=== PATIENT | male | born 1970 | race Caucasian/White ===

== ENCOUNTER 2016-12-07 06:00 | Inpatient (IN) | payer BC, OTHER ==
--- NOTE | 2016-12-06 16:35 | GHP ---
[f rep st] PREOP HISTORY AND PHYSICAL PROBLEM: Severe right hip degenerative arthritis. HISTORY OF PRESENT ILLNESS: Brandt is a 46-year-old male, who will be admitted for a right total hip arthroplasty with Dr. Riggs at the [facility] on Wednesday, December 07, 2016. The patient underwent a left hip resurfacing arthroplasty 6 years ago with a very good result. His right hip became very painful over the summer. For the past 6 months, he has had progressive, debilitating pain of the right hip. He has pain on a regular basis , both during the day and at night. Walking is very painful. His activities have become severely limited. 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 He uses oral anti-inflammatory with minimal improvement. He will also occasionally use [place] to help him sleep. He has difficulty putting on shoes and socks on the right side. He will also intermittently use a cane as needed. Because of his progressive pain and advanced arthritis, he has elected to proceed with a right hip resurfacing arthroplasty. PAST MEDICAL HISTORY: Pertinent for depression, hypoglycemia, acid reflux, and sleep apnea with use of a CPAP. No history of MRSA, [place], CAD, PE, or DVT. CURRENT MEDICATIONS: Diclofenac, omeprazole 40 mg, risperidone 1 mg tablets, venlafaxine 75 mg. MEDICATION ALLERGIES: Ceftin and Zoloft. No metal allergies. SOCIAL HISTORY: The patient is engaged. He lives with his fiancee. 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 He is a previous smoker at 1 pack per week. Chewing tobacco 2-4 days per week. Occasional alcohol and caffeine intake. FAMILY HISTORY: Pertinent for arthritis. PAST SURGICAL HISTORY: Appendectomy and cholecystectomy in 2014, and left hip THR in 2009. PHYSICAL EXAMINATION: GENERAL: He is an otherwise healthy-appearing 46-year- old male. VITAL SIGNS: Height 5 feet 11 inches tall, weight 260 pounds. BMI 36.3. HEENT. Head is normocephalic, atraumatic. Eyes are PERRLA. Conjunctivae and sclerae are clear. Mouth has good oral hygiene. Without any loose teeth. LUNGS: Clear. HEART: Regular rate and rhythm without murmurs, gallops, or rubs. EXTREMITIES: Pertinent findings are limited to the patient' s right hip. He has full hip extension, 80 degrees of flexion, basically 0 degrees of internal rotation and 20 degrees of abduction. IMPRESSION ON ADMISSION: 1. Severe right hip degenerative arthritis. 2. Six years status post left total hip replacement with good results. 3. Obesity. 4. Attention deficit hyperactivity disorder. 5. History of sleep apnea with CPAP use. 6. Gastroesophageal reflux disease. 7. Hypoglycemia. PLAN: The plan will be for the patient to undergo a right hip resurfacing arthroplasty with Dr. Riggs the [facility] on Wednesday, December 07, 2016. The surgery has been described to the patient including the risks, benefits, and expectations. He understands the risk of [id number] bearing surfaces. He also understands the risk of sciatic nerve injury, infection, hip dislocation, or need for future revision surgery. All his questions have been answered. He consents to surgery here in the office today. Copy requested to: RALPH Alberto Dr. /[id number]/MODL MTDD
[~2016-12-07 06:00] MED LIST: ACETAMINOPHEN 325 MG TAB PO ONE; CEFAZOLIN 2 GM/DEXTR 100 ML IV ONE; CHLORHEXIDINE GLUC HIBICLENS 118 ML BTL TP ONE; DEXAMETHASONE 4 MG/ML VIAL IVP ONE; FAMOTIDINE 20 MG TAB PO ONE; NS IV ONE; POVIDONE-IODINE 20 ML in SODIUM CL IRRIG SOLUTION 500 ML IRR ONE; ROPI/epiNEPH/KETOROLAC JOINT COCKTAIL IU ONE; TRANEXAMIC ACID IV ONE
[2016-12-07] MEDS ORDERED: LIDOCAINE 1% 5 ML SDV ONE (06:16)
[2016-12-07] MEDS ORDERED: SKIN ADHESIVE (DERMABOND) 1 EACH TP ONE (06:52)
[2016-12-07] MEDS ORDERED: ceFAZolin 1 GM/5 ML SYR ONE (06:53)
[2016-12-07] MEDS ORDERED: MIDAZOLAM 2 MG/2 ML VIAL ONE (07:12)
[2016-12-07] MEDS ORDERED: BUPIVACAINE 0.5% 30 ML SDV ONE (07:15)
[2016-12-07] MEDS ORDERED: PROPOFOL/EMULSION 500 MG/50 ML BOTTLE IV ONE ×3 (07:16→08:42)
[2016-12-07] MEDS ORDERED: fentaNYL 100 MCG/2 ML INJ ONE (07:16)
[2016-12-07] MEDS ORDERED: ONDANSETRON 4 MG/2 ML VIAL ONE (07:17)
[2016-12-07] MEDS ORDERED: LIDOCAINE 2% 100 MG/5 ML SYR IVP ONE (07:17)
[2016-12-07] MEDS ORDERED: DEXAMETHASONE 4 MG/ML VIAL ONE (07:17)
[2016-12-07] MEDS ORDERED: PHENYLEPHRINE HCL 100 MCG/ML SYR ONE ×2 (08:14→09:07)
--- NOTE | 2016-12-07 09:10 | POSTOPPROG ---
Post Op Note Date of Operation: 12/07/16 Surgeon: Dennis Riggs Wave Solder Offbearer: Robbin Anesthesiologist: Rohit Anesthesia: IV Sedation, Spinal Post-op Diagnosis: right hip arthritis Procedure: right BHR Inf/Abcess present in the surg proc area at time of surgery?: No EBL: [id number]
[2016-12-07] MEDS ORDERED: MAGNESIUM HYDROXIDE 30 ML UDCUP PO PRN (09:20)
[2016-12-07] MEDS ORDERED: LACTULOSE 20 GM/30 ML UDCUP PO PRN (09:20)
[2016-12-07] MEDS ORDERED: PROMETHAZINE HCL 25 MG SUPPR PR PRN (09:20)
[2016-12-07] MEDS ORDERED: PROMETHAZINE HCL 25 MG/ML INJ IVP PRN (09:20)
[2016-12-07] MEDS ORDERED: BISACODYL 10 MG SUPP PR PRN (09:20)
[2016-12-07] MEDS ORDERED: diphenhydrAMINE 25 MG CAP PO PRN (09:20)
[2016-12-07] MEDS ORDERED: DIPHENOXYLATE/ATROPINE LOMOTIL 1 TAB PO PRN (09:20)
[2016-12-07] MEDS ORDERED: ONDANSETRON 4 MG/2 ML VIAL IVP PRN (09:20)
[2016-12-07] MEDS ORDERED: POLYETHYLENE GLYCOL 3350 17 GM PKT PO PRN (09:20)
[2016-12-07] MEDS ORDERED: TEMAZEPAM 15 MG CAP PO PRN (09:20)
[2016-12-07] MEDS ORDERED: PHARMACY PAIN CONSULT 1 EA MISC PRN (09:20)
[2016-12-07] MEDS ORDERED: traMADol 50 MG TAB PO PRN (09:20)
[2016-12-07] MEDS ORDERED: NS 500 ML IV PRN (09:20)
[2016-12-07] MEDS ORDERED: ONDANSETRON DISINTEGRATING 4 MG TAB PO PRN (09:20)
[2016-12-07] MEDS ORDERED: LR 1,000 ML IV SCH (09:30)
--- NOTE | 2016-12-07 09:59 | DX ---
AP Pelvis History: Postop hip resurfacing procedure. Comparison: January 12, 2010 Findings: A new right hip resurfacing implant is present. There is a stable previously placed left re surfacing implant. Bilateral alignment looks anatomic. Bilateral vasectomy clips are again present. Impression: Excellent postoperative alignment.
--- NOTE | 2016-12-07 10:34 | GOP ---
[f rep st] OPERATIVE REPORT DATE OF OPERATION: 12/07/2016 SURGEON: Dennis Riggs MD SATELLITE TELEVISION INSTALLER: 1. Spencer Hernandez CFA. 2. Mark Neves, PAC. ANESTHESIA: Combination of Marcaine, spinal, and IV sedation. ANESTHESIOLOGIST: Braulio Bee MD. PREOPERATIVE DIAGNOSIS: Right hip severe degenerative arthritis. POSTOPERATIVE DIAGNOSIS: Right hip severe degenerative arthritis. PROCEDURE PERFORMED: Right hip [place] hip resurfacing arthroplasty. FINDINGS: DESCRIPTION OF PROCEDURE: The patient was given 2 g of preoperative IV Ancef within 60 minutes of gregory rgery. He also received IV tranexamic acid at a dose of 20 mg/kg. He was placed on the operating ro om table and given spinal anesthesia with Marcaine by Dr. Bee. He was then placed supine and given IV sedation. A Bethea catheter was not used. He wore a compressive stocking and SCD on the nonopera tive leg. He was rolled to the left lateral decubitus position. An axillary roll was used and all p ressure points were carefully padded. He was a large man; height 5 feet 11 inches, weight 260 pounds , BMI 36.3, which made positioning somewhat difficult. He was rolled to the left lateral decubitus p osition. An axillary roll was used, and all pressure points were carefully padded. The position was secured with the pegboard table attachment. I was careful to lock his pelvis in a vertical position . His perineum was isolated with plastic adhesive drapes. The right hip and right lower extremity w ere prepped with ChloraPrep. They were draped free using sterile sheets, stockinette, and Ioban plas tic drape. The [employer] time-out was performed to verify the correct patient identity and the c orrect surgical side. The [place] time-out was also performed. I made a 7-inch straight oblique posterolateral hip skin incision. The subcutaneous tissues were sha rply divided, and hemostasis was obtained using electrocautery. His fascia pablo was identified and s plit along the axis of its fibers. I curved posteriorly and proximally, and split the fascia of the gluteus nasrin and bluntly split the muscle fibers in line with their orientation. His sciatic nerv e was identified and protected throughout the procedure. The Charnley self-retaining retractor was i nserted. The external rotators and the posterior hip capsule were divided as separate layers at the base of the femoral neck, tagged, and reflected posteriorly. The gluteus nasrin tendon was divided and tagged in order to improve exposure and release tension on the sciatic nerve. His hip was disloc ated posteriorly. I used a sizing gauge to check the diameter of the neck and concluded that 48 mm w as the proper head size. I performed a circumferential capsulotomy. I was able to retract the femor al head anteriorly and superiorly and hold it out of place with appropriate retractors. The remnant of the badly damaged labrum was completely excised. His acetabulum was reamed sequentially up to 54 mm. I selected the [place] monoblock porous-coated acetabular component with an outside diameter of 54 mm. This was firmly impacted and was a very tight fit. I was careful to determine proper incl ination and anteversion. I used the transverse acetabular ligament and other acetabular bony landmar ks to help me properly orient the cup. He had a large anterior and anterior-inferior osteophytes, wh ich I removed with an osteotome and rongeur. I was careful to leave a good lip of bone and capsule e xtending beyond the anterior-inferior lip of the metal cup. I then returned to preparation of the femoral head. Using appropriate jigs and guides, I inserted a guide pin into the femoral head and neck. I was careful to position it in such a way that there woul d be no notching of the neck. He had a large anterior head/neck osteophyte. There was no anterior h ead/neck offset. I reamed over the guide pin and inserted the reaming guide. I then used the cylind rical reamer down to the head/neck junction. This was followed by the flat reamer and the chamfer re amer. The head was sized for 50 mm. I tried to position it in a way that was re-establishing the an terior head/neck offset. There was no impingement or damage to the neck. I trimmed some soft anteri or neck osteophytes with a rongeur. I drilled a small hole in the lesser trochanter, and inserted a suction cannula to create negative pressure in the medullary canal. Small holes were drilled on the flattened chamfered surfaces of the prepared head for cement anchors. The head was thoroughly cleane d with the pulsating lavage and carefully dried. I used the CarboJet device to blow dry the cancello us surfaces. A single batch of Simplex cement with tobramycin was mixed. At about 50 seconds, I epifanio red the liquid cement into the head component, inserted it into the femoral head and impacted it into place. Excess cement was removed before it hardened. The acetabulum was irrigated, cleaned, and in spected, and the hip was reduced. Stability and range of motion were checked. I placed my finger al michelle the anterior aspect of the acetabular component, and flexed the hip to 110 degrees. There was no anterior impingement. The suction cannula in the lesser trochanter was removed. The wound was thor oughly irrigated with a dilute Betadine solution. 40 cc of the joint anesthetic cocktail were inject ed into the capsule, the deep musculature, and the subcutaneous tissues along the skin edges. His sciatic nerve was reinspected and looked unharmed. The external rotators and the posterior hip c apsule were repaired in separate layers with #2 FiberWire sutures through drill holes in the greater trochanter. This provided a strong posterior capsular and external rotator repair. The gluteus maxi mus tendon was repaired with 2 interrupted [id number] #2 FiberWire sutures. The fascia pablo was repaired first with 2 interrupted [id number] #2 FiberWire sutures, followed by a running #2 bar bed Ethicon Stratafix PDO suture. The subcutaneous tissues were closed with a running 0 barbed Ethic on Stratafix Monoderm suture. The skin was closed with a running 3-0 barbed Ethicon Stratafix Monode rm subcuticular suture. The skin edges were reapproximated and sealed with Dermabond glue. The woun d was covered with a strip of Telfa, and everything was held in place with a piece of clear plastic T egaderm. The estimated blood loss was approximately 400 mL. I used a [employer] [place] hip resurfacing system. The acetabular component was 54 mm in d iameter and press-fit. The femoral head was 50 mm and cemented. He was awakened from anesthesia and rolled to the supine position on his [facility]. A long leg compressive stocking and SCD were applied to the operative leg. He wore a stocking and SCD on the opposite leg during the procedure. An abduction pillow was placed between his knees. The patient was taken to PACU in satisfactory cond ition. There were no recognized intraoperative complications. The sponge and needle counts were correct on 2 occasions. Spencer Hernandez and Sebastien Neves acted as surgical assistants. Their assistance was a medical necess ity. Copy requested to: David Marcum MD [place] /[id number]/MODL
[2016-12-07] MEDS: ACETAMINOPHEN 325 MG TAB PO SCH ×2 (11:16→17:32)
[2016-12-07] MEDS: TRANEXAMIC ACID 650 MG TAB PO SCH ×3 (11:16→21:27)
[2016-12-07] MEDS ORDERED: ceFAZolin 2 GM/DEXTROSE 100 ML IV SCH (14:00)
[2016-12-07] MEDS: oxyCODONE IR 5 MG TAB PO PRN ×4 (14:12→21:37)
[2016-12-07] MEDS: KETOROLAC 30 MG/1 ML SDV IVP PRN ×2 (14:13→21:38)
[2016-12-07] MEDS ORDERED: NON-FORMULARY NEW DRUG (Omeprazole [Prilosec 20 Mg] 40 MG) PO SCH (21:00)
[2016-12-07] MEDS ORDERED: risperiDONE 1 MG TAB PO SCH (21:00)
[2016-12-07] MEDS: VENLAFAXINE XR 75 MG CAP PO SCH (21:27)
[2016-12-07] MEDS: PANTOPRAZOLE SODIUM 40 MG TAB PO SCH (21:27)
[2016-12-07] MEDS: SENNOSIDES/DOCUSATE SODIUM TAB PO SCH (21:27)
[2016-12-07] MEDS: FAMOTIDINE 20 MG TAB PO SCH (21:28)
[2016-12-07] MEDS: ASPIRIN 325 MG TAB PO SCH (21:32)
[2016-12-07] MEDS: CYCLOBENZAPRINE 10 MG TAB PO PRN (21:38)
[2016-12-07] MEDS ORDERED: ceFAZolin 2 GM in D5W 100 ML IV ONE (22:00)
[2016-12-08] MEDS: ACETAMINOPHEN 325 MG TAB PO SCH ×3 (02:30→13:37)
[2016-12-08 04:20] VITALS: RESP 16
[2016-12-08 05:11] LABS: HEMATOCRIT 33.9 % (40.0-51.0); HEMOGLOBIN 11.6 g/dL (13.7-17.5)
[2016-12-08] MEDS: CYCLOBENZAPRINE 10 MG TAB PO PRN ×2 (05:18→13:38)
[2016-12-08] MEDS: oxyCODONE IR 5 MG TAB PO PRN ×3 (05:18→13:38)
[2016-12-08 08:47] VITALS: BP 118/78; PULSE 75; TEMP 98.5; O2SAT 98
[2016-12-08] MEDS: VENLAFAXINE XR 75 MG CAP PO SCH (08:47)
[2016-12-08] MEDS: SENNOSIDES/DOCUSATE SODIUM TAB PO SCH (08:48)
[2016-12-08] MEDS: ASPIRIN 325 MG TAB PO SCH (08:48)
[2016-12-08] MEDS: PANTOPRAZOLE SODIUM 40 MG TAB PO SCH (08:49)
[2016-12-08] MEDS: TRANEXAMIC ACID 650 MG TAB PO SCH (08:49)
[2016-12-08] MEDS: KETOROLAC 30 MG/1 ML SDV IVP PRN (08:50)
[2016-12-08] MEDS: FAMOTIDINE 20 MG TAB PO SCH (08:50)
[2016-12-08] MEDS ORDERED: CETIRIZINE 10 MG TAB PO SCH (09:00)
[2016-12-08] MEDS ORDERED: MULTIVITAMINS 1 EACH TAB PO SCH (09:00)
[2016-12-08] MEDS ORDERED: FERROUS SULFATE 140 MG TAB.ER PO SCH (09:00)
[2016-12-08] MEDS ORDERED: NON-FORMULARY NEW DRUG (Fexofenadine Hcl [Allegra Allergy] 60 MG) PO SCH (09:00)
[2016-12-08] MEDS ORDERED: risperiDONE 0.5 MG TAB PO SCH (09:00)
--- NOTE | 2016-12-08 09:29 | SOAPPROG ---
SOAP Progress Note Assessment/Plan: Assessment: Afebrile. Moderate pain. Dsg is dry. Mild swelling. Sciatic nerve intact. H/H is good. Films look good. Plan: Up with PT. DC later today. 12/08/16 09:28 12/08/16 09:28 Objective: Vital Signs Temp Pulse Resp BP Pulse Ox 36.9 C 75 16 118/78 98 12/08/16 08:44 12/08/16 08:44 12/08/16 08:44 12/08/16 08:44 12/08/16 08:44 Laboratory Results 12/08/16 04:20 12/07/16 12/08/16 12/09/16 05:59 05:59 05:59 Intake Total 4250 Output Total 6645 Balance 1475 ICD10 Worksheet Patient Problems: Problems Problem Status Diagnosed Osteoarthritis of right hip Acute
--- NOTE | 2016-12-08 11:52 | GDS ---
[f rep st] DISCHARGE SUMMARY ADMISSION DIAGNOSIS: Right hip arthritis. DISCHARGE DIAGNOSIS: Right hip arthritis. PROCEDURE PERFORMED: 12/07/2016, right hip [place] hip resurfacing arthroplasty. POSTOPERAETIVE COMPLICATIONS: None. CONDITION ON DISCHARGE: Improved. DESCRIPTION OF HOSPITAL COURSE: The patient was admitted to the hospital on the morning of surgery. His admission CBC was normal. The same day, under a combination of Marcaine spinal and IV sedation, he underwent a right hip [place] hip resurfacing arthroplasty. Postoperatively, he was treated w ith multimodal DVT prophylaxis including aspirin. There were no postoperative problems with urinatio n. On the 1st postoperative day, his hemoglobin and hematocrit were 11.6 and 33.9. He did not requi re any transfused blood. He was seen by Physical Therapy and made good progress with ambulation and stairs. By the time of discharge, he was afebrile and was independent walking with a walker. DISPOSITION: The [facility]. I will see him in the office tomorrow. After that, he will return to his home in [place], [place]. He may progress to full weightbe aring on the right as tolerated. Use an abduction pillow in bed for 3 weeks. Continue aspirin 325 m g p.o. daily for 21 days. Continue JAMES stockings for 1 week. He has prescriptions for oxycodone and tramadol for pain control. If there are any problems, he will call me at the office. He will go to outpatient physical therapy in [place], [place]. /[id number]/MODL
== END 2016-12-08 13:41 | disposition home or self-care (01) | DRG 470 ==
LOC: F3N 06:00
PROVIDERS: ADMIT Orthopaedic Surgery; ATTEND Orthopaedic Surgery
PROC: 0SR90J9 Replacement of Right Hip Joint with Synthetic Substitute, Cemented, Open Approach (ICD-10-PCS; principal; 2016-12-07 07:15)
DX: M16.11 Unilateral primary osteoarthritis, right hip (principal); F32.9 Major depressive disorder, single episode, unspecified; E16.2 Hypoglycemia, unspecified; G47.33 Obstructive sleep apnea (adult) (pediatric); Z96.642 Presence of left artificial hip joint; E66.01 Morbid (severe) obesity due to excess calories; F90.0 Attention-deficit hyperactivity disorder, predominantly inattentive type; K21.9 Gastro-esophageal reflux disease without esophagitis; Z68.36 Body mass index [BMI] 36.0-36.9, adult
CPT/HCPCS: 97110-GP; 97116-GP; 97161-GP; 97165-GO; 97530-GP; C1713; C1769; J0171; J0690; J1100; J1885; J2001; J2250; J2370; J2405; J2704; J2795; J3010